=== PATIENT | male | born 1945 | race Caucasian/White ===

== ENCOUNTER 2021-08-15 09:39 | Emergency (ER) | payer MEDICARE, BC ==
[2021-08-15] MEDS ORDERED: HYDROCODON-ACE1 EAC4 PO (13:39)
== END 2021-08-15 14:00 | disposition home or self-care (01) ==
LOC: ER1 09:39
DX: S42.211A Unspecified displaced fracture of surgical neck of right humerus, initial encounter for closed fracture (principal); S00.33XA Contusion of nose, initial encounter; I48.91 Unspecified atrial fibrillation; E11.9 Type 2 diabetes mellitus without complications; E78.5 Hyperlipidemia, unspecified; W01.0XXA Fall on same level from slipping, tripping and stumbling without subsequent striking against object, initial encounter; Y92.481 Parking lot as the place of occurrence of the external cause
CPT/HCPCS: 70160; 70450; 72125; 73030; 96374; 96375; 99284; J2270; J2405

== ENCOUNTER → 2021-09-19 | Outpatient (CLI) | payer MEDICARE, BC ==
[~2021-09-19] MED LIST: ALLERGY RELIEF5 MG PO; AMLODIPINE BESYL5 MG PO; CRESTOR20 MG PO; DITROPAN 5 MG TA5 MG PO; ELIQUIS5 MG PO; FLOMAX 0.4 MG0.4 MG PO; HYDROCODON-ACE1 EAC4 PO; LANTUS SOL100 UNIT/1 SQ; LOSARTAN POTAS100 MG PO; METFORMIN HCL500 MG PO; MYCOSTATIN100000 UTS PO; NEURONTIN300 MG PO; NOVOLIN N100 UNIT/2 SQ; SINGULAIR10 MG PO; TOPROL XL50 MG PO; TRAMADOL HCL50 MG PO; TYLENOL 8 HOUR650 MG PO; VITAMIN B COMP1 EACH PO
[2021-09-19 09:06] LABS: HEMOGLOBIN 12.7 gm/dl (14.0-17.5); RED BLOOD COUNT 4.89 M/UL (4.20-5.50); WHITE BLOOD COUNT 6.9 K/UL (4.5-11.0)
[2021-09-19 09:13] LABS: BUN/CREATININE RATIO 9 (0-10)
== END ==
LOC: EDSTATUS 08:00 → OPSV2 08:00
PROVIDERS: Orthopaedic Surgery
DX: Z01.818 Encounter for other preprocedural examination (principal); S42.301A Unspecified fracture of shaft of humerus, right arm, initial encounter for closed fracture; X58.XXXA Exposure to other specified factors, initial encounter; R94.31 Abnormal electrocardiogram [ECG] [EKG]; I48.91 Unspecified atrial fibrillation; I25.2 Old myocardial infarction
CPT/HCPCS: 80048; 85027; 93005